=== PATIENT | female | born 1975 | race Caucasian/White ===

== ENCOUNTER 2017-07-04 00:24 | Emergency (ER) | payer OTHER ==
[~2017-07-04] VITALS: Ht 167.6 cm; Wt 93.9 kg
[~2017-07-04 00:24] MED LIST: CLARITIN10 MG PO; PREFERA-OB P1 TABLET PO; PRENATAL TABLE1 EAC3 PO; TUMS500 MG PO; TYLENOL REGULA325 MG PO; ~No Medications
[2017-07-04 00:55] LABS: HEMATOCRIT 41.8 % (36.0-46.0); MCH 26.2 PG (29.0-34.0); MCHC 32.3 G/DL (30.0-36.0); MCV 81.2 FL (83-99); MEAN PLAT.VOLUME 11.3 uM^3 (9.5-12.4); PLATELET COUNT 260 K/uL (156-360); RBC DIS.WIDTH-CV 12.7 % (11.8-14.6); RBC DIS.WIDTH-SD 37.5 % (39-53); RED BLOOD COUNT 5.15 M/uL (3.80-5.20); WHITE BLOOD COUNT 9.7 K/uL (4.1-10.2)
[2017-07-04 01:30] LABS: TROP-I INTERPRETATION NEGATIVE; TROPONIN-I < 0.01 ng/mL (0.0-0.30)
[2017-07-04 03:13] LABS: CHLORIDE 106 mEq/L (99-109); SODIUM 140 mEq/L (136-147)
[2017-07-04 03:15] LABS: GLUCOSE 100 mg/dL (70-99)
[2017-07-04 03:17] LABS: ANION GAP 9 MEQ/L (2-14)
[2017-07-04 03:19] LABS: GFR ESTIMATE (CALCULATED) > 59 mL/min/
[2017-07-04 03:20] LABS: UREA NITROGEN (BUN) 11 mg/dL (9-23)
[2017-07-04 03:24] LABS: TROP-I INTERPRETATION NEGATIVE; TROPONIN-I < 0.01 ng/mL (0.0-0.30)
[2017-07-04 03:50] VITALS: BP 136/88
== END 2017-07-04 03:50 | disposition home or self-care (01) ==
LOC: EXP 00:24 → EME 00:24 → EXP 03:50
PROVIDERS: Physician Assistant
DX: R07.9 Chest pain, unspecified (principal); Z88.0 Allergy status to penicillin; Z88.2 Allergy status to sulfonamides
CPT/HCPCS: 71020; 80048; 84484; 85027; 93005; 99281; 99284